=== PATIENT | male | born 1965 | race Asian ===

== ENCOUNTER 2022-05-08 15:46 | Emergency (ER) | payer OTHER ==
[2022-05-08] MEDS ORDERED: HYDROcod/ACETAM 5/325 MG TABLET PO STA (18:05)
[2022-05-08] MEDS ORDERED: IBUPROFEN 600 MG TABLET PO STA (18:05)
[2022-05-08] MEDS ORDERED: NIRMATRELVIR/RITONAVIR PREPACK PO STA (18:05)
--- NOTE | 2022-05-08 18:07 | ED Physician Documentation ---
History of Present Illness - Stated complaint Stated Complaint: C+ SOA,DIZZY,FEVER - Chief complaint Chief Complaint: General - History obtained from History obtained from: Patient, Family - Additonal information Additional information: Otherwise healthy 57-year-old gentleman has been sick for 3 or 4 days with typical COVID symptoms and subsequently tested positive. He complains of severe chills, muscle aches, cough and shortness of breath, fevers. He has tried Tylenol, Robitussin and NyQuil with modest relief. Review of Systems Constitutional: reports: Fever, Chills, Myalgias, Fatigue Nose: reports: Rhinorrhea / runny nose Throat: denies: Sore throat Respiratory: reports: Dyspnea, Cough PD PAST MEDICAL HISTORY - Present Medications Home Medications: Ambulatory Orders Medication Instructions Recorded Confirmed HYDROcod/ACETAM 5/325 [[place] 5/325] 1 - 2 tab PO Q6H PRN #15 tablet 05/08/22 Ibuprofen [Motrin] 600 mg PO Q6H PRN #30 tab 05/08/22 - Allergies Allergies/Adverse Reactions: Allergies Allergy/AdvReac Type Severity Reaction Status Date / Time No Known Drug Allergies Allergy Verified 05/08/22 15:52 PD ED PE NORMAL - Vitals Vital signs reviewed: Yes - General General: Alert and oriented X 3, No acute distress - HEENT HEENT: Pharynx benign - Cardiac Cardiac: RRR, No murmur - Respiratory Respiratory: No respiratory distress, Clear bilaterally - Abdomen Abdomen: Non tender - Back Back: No CVA TTP, No spinal TTP - Derm Derm: Normal color, Warm and dry - Neuro Neuro: Alert and oriented X 3, Normal speech Eye Opening: Spontaneous Motor: Obeys Commands Verbal: Oriented GCS Score: 15 - Psych Psych: Normal mood, Normal affect Results - Vitals Vitals: Vital Signs - 24 hr 05/08/22 15:52 Temperature 36.5 C Heart Rate 90 Respiratory 18 Rate Blood Pressure 144/70 H O2 Saturation 100 Oxygen O2 Source Room air PD Medical Decision Making - ED course ED course: 57-year-old gentleman with typical COVID symptoms. We discussed treatment options including antiviral medications and symptomatic relief and he would like to go ahead with everything. He also needs a note for work. Departure - Departure Disposition: Home, Self Care Clinical Impression: COVID-19 Condition: Good Record reviewed to determine appropriate education?: Yes Instructions: ED Viral Syndrome Prescriptions: Ibuprofen [Motrin] 600 mg PO Q6H PRN #30 tab PRN Reason: Pain HYDROcod/ACETAM 5/325 [[place] 5/325] 1 - 2 tab PO Q6H PRN #15 tablet PRN Reason: Pain Comments: You were seen today for COVID. Your symptoms are typical for COVID. We prescribed some antiviral medications which should help. You need to continue to quarantine. I sent your prescriptions electronically to [facility] in [place]. Drink plenty of fluids. Return if worse. I am prescribing a short course of narcotic pain medication for you. These are potentially dangerous and addictive medications that should be used carefully. These medications may constipate you. Take an [id number] stool softener (docusate) twice daily with plenty of water while taking these medications. If you go 24 hours without a bowel movement, take [id number] miralax, per package instructions. Do not drink or drive while taking these medications. If you received narcotic or sedating medications while in the emergency department, do not drive for 24 hours. Store this medication in a safe, secure place and out of reach of children. It is a violation of federal law to give or sell this medication to another person or to use in a manner other than prescribed. The ED will not refill narcotic prescriptions, including prescriptions lost or stolen. To dispose of unwanted medications: 1. [facility] at [address] in [place] has a medication drop box. They accept prescription medications (in pill form) Thursday through Thursday 9:00 a.m. to 5:00 p.m. 2. The [facility] [employer] accepts prescription medications (in pill form only) for disposal year round. Call for more information. 3. Contact the [facility] for the next [facility] sponsored prescription drug collection event. , [phone], or [phone]; Note that many narcotic pain relievers also contain Tylenol/acetaminophen. Please ensure that your total dose of acetaminophen from all sources does not exceed 3 g (3000 mg) per day. Forms: Activity restrictions
[2022-05-08 18:38] VITALS: BP 124/92
== END 2022-05-08 18:37 | disposition home or self-care (01) ==
LOC: ED 15:46
DX: U07.1 COVID-19 (principal)
CPT/HCPCS: 99282; 99283; A9270; J3490

== ENCOUNTER 2022-05-08 21:39 | Outpatient (CLI) | payer OTHER | END 2022-05-08 21:40 | disposition critical access hospital (66) | LOC: EMS 21:39 | DX: U07.1 COVID-19 (principal); R06.02 Shortness of breath; R56.9 Unspecified convulsions; R41.82 Altered mental status, unspecified | CPT/HCPCS: A0425; A0429 ==

== ENCOUNTER 2022-05-08 22:04 | Inpatient (IN) | payer OTHER ==
--- NOTE | 2022-05-08 22:04 | ED Physician Documentation ---
PD HPI SEIZURE - Stated complaint Stated Complaint: SZ - History obtained from History obtained from: Family, EMS - History of Present Illness Timing - onset: Enter time (21:10), Today Witnessed: Witnessed Number of seizures: Single, Lasted - seconds Description of seizure activity: Generalized, Tonic clonic Injury during seizure: None History of seizures: First seizure Similar symptoms before: Has not had sx before Recently seen: Emergency Dept - Additional information Additional information: Patient is brought in by ambulance. HPI is from EMS as well as patient's son. Patient is unable to contribute the HPI, or review of systems due to AMS. Patient was discharged a few hours ago from this emergency department. At that time, he was evaluated for a chief complaint of a few days of symptoms consistent with COVID: Chills, myalgias, cough, shortness of breath, fever. ED MD note indicates patient tested positive for COVID at home.No testing was performed at that time in the ER. He was prescribed hydrocodone and given Paxlovid kit. At approximately 9 PM tonight, patient's son heard the patient calling out from an adjacent room. Patient son then checked on patient and found the patient on the floor clutching his chest complaining of chest pain and difficulty breathing. The patient then exhibited seizure activity which patient son describes as Generalized shaking followed by full body stiffening, eyes deviating upwards, and "foaming at the mouth". Patient's son says that the shaking and the stiffening lasted for less than 10 seconds. EMS did not witness any seizure activity, but note that patient is seemingly very confused, not following commands, making nonpurposeful movements. The patient does not have any seizure history. There is no known injury such as fall or head injury. Per family, the patient has no medical history and does not take any prescription medications aside from the medications that were provided/prescribed earlier today from this emergency department. Fingerstick blood sugar by EMS result is 158. Temperature taken by EMS is 96.8. Review of Systems Unable to obtain: AMS PD PAST MEDICAL HISTORY - Past Medical History Past Medical History: No Other Past Medical History: Diagnosed with COVID earlier today - Present Medications Home Medications: Ambulatory Orders Medication Instructions Recorded Confirmed HYDROcod/ACETAM 5/325 [[place] 5/325] 1 - 2 tab PO Q6H PRN #15 tablet 05/08/22 Ibuprofen [Motrin] 600 mg PO Q6H PRN #30 tab 05/08/22 - Allergies Allergies/Adverse Reactions: Allergies Allergy/AdvReac Type Severity Reaction Status Date / Time No Known Drug Allergies Allergy Verified 05/09/22 08:21 - Living Situation Living Situation: reports: With family Living Arrangement: reports: At home PD ED PE NORMAL - Vitals Vital signs reviewed: Yes - General General: No acute distress, Well developed/nourished, Other (Patient is awake, alert. He does not follow commands. He is nonverbal, does not answer any questions (RN Phoenix is at bedside to help with translation to [employer]). Patient makes nonpurposeful movements except occasionally trying to remove leads from his chest as picking at IV) - HEENT HEENT: Atraumatic, PERRL, EOMI, Other (Despite repeated attempts to have patient open his mouth, he does not open his mouth. Thus cannot assess mucous membranes nor whether there is tongue bite. However, there is a small amount of dried blood noted on his lips.) - Neck Neck: Supple, no meningeal sign - Cardiac Cardiac: RRR, No murmur - Respiratory Respiratory: No respiratory distress, Other (Mild bibasilar muscles scattered rhonchi) - Abdomen Abdomen: Soft, Non tender (Palpation of abdomen does not elicit any reaction such as wincing nor guarding), Non distended - Derm Derm: Normal color, Warm and dry - Extremities Extremities: No edema PD ED PE EXPANDED - GCS Eye Opening: Spontaneous Motor: Localizes to Pain Verbal: None Total: 10 Results - Vitals Vitals: Vital Signs - 24 hr 05/08/22 05/08/22 05/08/22 22:01 22:33 22:37 Temperature 36.3 C L Heart Rate 92 94 86 Respiratory 21 100 H 26 H Rate Blood Pressure 135/97 H 125/107 H 125/107 H O2 Saturation 100 99 100 05/08/22 05/08/22 05/08/22 22:59 23:41 23:49 Temperature 37.1 C Heart Rate 91 78 Respiratory 24 14 Rate Blood Pressure 156/75 H 126/85 H O2 Saturation 96 99 05/09/22 05/09/22 00:00 00:50 Temperature Heart Rate 88 89 Respiratory 15 16 Rate Blood Pressure 109/89 H 109/89 H O2 Saturation 99 100 Oxygen O2 Source Room air - EKG (time done) No standard instances Rate: Rate (enter#) (92) Rhythm: NSR [place]: Normal Intervals: Normal [place], RBBB QRS: Normal Ischemia: Normal ST segments - Labs Labs: Laboratory Tests 05/08/22 05/08/22 05/08/22 22:29 22:29 22:39 WBC 8.4 RBC 4.28 L Hgb 12.7 L Hct 37.5 L MCV 87.6 MCH 29.7 MCHC 33.9 RDW 11.3 L Plt Count 175 MPV 9.3 Neut # (Auto) 6.7 H Lymph # (Auto) 1.1 L [place] # (Auto) 0.6 Eos # (Auto) 0.0 Baso # (Auto) 0.0 Absolute Nucleated RBC 0.00 Nucleated RBC % 0.0 Sodium Potassium Chloride Carbon Dioxide Anion Gap BUN Creatinine Estimated GFR (MDRD) Glucose Calcium Total Bilirubin AST ALT Alkaline Phosphatase Troponin I High Sens 7.6 Total Protein Albumin Globulin Albumin/Globulin Ratio Lipase Urine Color Urine Clarity Urine pH Ur Specific [place] Urine Protein Urine Glucose (UA) Urine Ketones Urine Occult Blood Urine Nitrite Urine Bilirubin Urine Urobilinogen Ur Leukocyte Esterase Urine RBC Urine WBC Ur Squamous Epith Cells Urine Bacteria Ur Microscopic Review Urine Culture Comments Urine Sodium Nasal Adenovirus (PCR) NOT DETECTED Nasal B. parapertussis DNA (PCR) NOT DETECTED Nasal Coronavir 229E PCR NOT DETECTED Nasal Coronavir HKU1 PCR NOT DETECTED Nasal Coronavir NL63 PCR NOT DETECTED Nasal Coronavir OC43 PCR NOT DETECTED Nasal Enterovir/Rhinovir PCR NOT DETECTED Nasal Influenza B PCR NOT DETECTED Nasal Influenza A PCR NOT DETECTED Nasal Parainfluen 1 PCR NOT DETECTED Nasal Parainfluen 2 PCR NOT DETECTED Nasal Parainfluen 3 PCR NOT DETECTED Nasal Parainfluen 4 PCR NOT DETECTED Nasal RSV (PCR) NOT DETECTED Nasal B.pertussis DNA PCR NOT DETECTED Nasal C.pneumoniae (PCR) NOT DETECTED Jon Human Metapneumo PCR NOT DETECTED Nasal M.pneumoniae (PCR) NOT DETECTED Nasal SARS-CoV-2 (PCR) DETECTED A 05/08/22 05/08/22 05/08/22 22:45 22:45 23:13 WBC RBC Hgb Hct MCV MCH MCHC RDW Plt Count MPV Neut # (Auto) Lymph # (Auto) [place] # (Auto) Eos # (Auto) Baso # (Auto) Absolute Nucleated RBC Nucleated RBC % Sodium 115 L* Potassium 3.4 L Chloride 81 L Carbon Dioxide 23 Anion Gap 11.0 BUN 6 Creatinine 0.7 Estimated GFR (MDRD) 116 Glucose 143 H Calcium 8.2 L Total Bilirubin 0.8 AST 61 H ALT 26 Alkaline Phosphatase 42 Troponin I High Sens Total Protein 6.7 Albumin 3.5 Globulin 3.2 Albumin/Globulin Ratio 1.1 Lipase 39 Urine Color YELLOW Urine Clarity CLEAR Urine pH 6.0 Ur Specific [place] 1.015 Urine Protein NEGATIVE Urine Glucose (UA) 100 H Urine Ketones NEGATIVE Urine Occult Blood LARGE H Urine Nitrite NEGATIVE Urine Bilirubin NEGATIVE Urine Urobilinogen 0.2 (NORMAL) Ur Leukocyte Esterase NEGATIVE Urine RBC 0-5 Urine WBC 0-3 Ur Squamous Epith Cells FEW Squamous Urine Bacteria Rare Ur Microscopic Review INDICATED Urine Culture Comments NOT INDICATED Urine Sodium 60.0 Nasal Adenovirus (PCR) Nasal B. parapertussis DNA (PCR) Nasal Coronavir 229E PCR Nasal Coronavir HKU1 PCR Nasal Coronavir NL63 PCR Nasal Coronavir OC43 PCR Nasal Enterovir/Rhinovir PCR Nasal Influenza B PCR Nasal Influenza A PCR Nasal Parainfluen 1 PCR Nasal Parainfluen 2 PCR Nasal Parainfluen 3 PCR Nasal Parainfluen 4 PCR Nasal RSV (PCR) Nasal B.pertussis DNA PCR Nasal C.pneumoniae (PCR) Jon Human Metapneumo PCR Nasal M.pneumoniae (PCR) Nasal SARS-CoV-2 (PCR) 05/09/22 00:49 WBC RBC Hgb Hct MCV MCH MCHC RDW Plt Count MPV Neut # (Auto) Lymph # (Auto) [place] # (Auto) Eos # (Auto) Baso # (Auto) Absolute Nucleated RBC Nucleated RBC % Sodium 118 L* Potassium 3.4 L Chloride 80 L* Carbon Dioxide 26 Anion Gap 12.0 BUN 6 Creatinine 0.7 Estimated GFR (MDRD) 116 Glucose 127 H Calcium 8.4 L Total Bilirubin AST ALT Alkaline Phosphatase Troponin I High Sens Total Protein Albumin Globulin Albumin/Globulin Ratio Lipase Urine Color Urine Clarity Urine pH Ur Specific [place] Urine Protein Urine Glucose (UA) Urine Ketones Urine Occult Blood Urine Nitrite Urine Bilirubin Urine Urobilinogen Ur Leukocyte Esterase Urine RBC Urine WBC Ur Squamous Epith Cells Urine Bacteria Ur Microscopic Review Urine Culture Comments Urine Sodium Nasal Adenovirus (PCR) Nasal B. parapertussis DNA (PCR) Nasal Coronavir 229E PCR Nasal Coronavir HKU1 PCR Nasal Coronavir NL63 PCR Nasal Coronavir OC43 PCR Nasal Enterovir/Rhinovir PCR Nasal Influenza B PCR Nasal Influenza A PCR Nasal Parainfluen 1 PCR Nasal Parainfluen 2 PCR Nasal Parainfluen 3 PCR Nasal Parainfluen 4 PCR Nasal RSV (PCR) Nasal B.pertussis DNA PCR Nasal C.pneumoniae (PCR) Jon Human Metapneumo PCR Nasal M.pneumoniae (PCR) Nasal SARS-CoV-2 (PCR) - Rads (name of study) CT head Radiology: Prelim report reviewed, Discussed with rads, EMP read indepedently, See rad report chest xray Radiology: Prelim report reviewed, EMP read indepedently, See rad report PD Medical Decision Making - ED course Complexity details: reviewed results, re-evaluated patient, considered differential Reviewed Lab Results: Tests that are ordered resulted and reviewed by me include CBC, ER abdominal panel, urinalysis, troponin, respiratory PCR panel. Additionally, chest x-ray and CT head are performed and reviewed by me. CBC has no remarkable findings; very mildly low hemoglobin of 12.7 is noted. Patient's high-sensitivity troponin is 7.6, normal range. Patient's respiratory PCR panel is confirmatory (positive) for COVID, negative for all other viruses tested on this panel.Liver function tests and lipase are without remarkable result. The most notable and relevant finding on his blood tests is a sodium of 115. Also noted is hypochloremia with chloride of 81. There are no previous tests available in [facility] for comparative purposes. This low sodium is the most likely explanation for patient's seizure at this point, as well as his ongoing confusion that is well beyond a typical postictal phase. Drug Therapy Requiring Monitoring for Toxicity: Due to patient's severe hyponatremia combined with seizure which occurred immediately prior to arrival, he is given 100 mL of hypertonic (3%) saline intravenously over 10 minutes. ED course: Patient did not exhibit any seizure activity during his ER stay, although throughout his ER stay he was confused, nonverbal, not following commands, and making mostly nonpurposeful movements except occasionally trying to remove medical equipment such as his EKG leads/monitor leads, occasionally trying to remove his IV briefly but distractible. He is given IV lorazepam doses to facilitate testing, particularly for the CT head to be adequately performed. Note that there was a substantial delay from when the CT head was performed until the time that the radiologist reading was made available to me. I did review the images of the CT head myself and I do not appreciate any mass, bleed, mass-effect, nor midline shift. After over 3-1/[address] had been completed, I heard from the radiologist that he had read the study less than an hour after he did been completed, and apparently was having some difficulty in entering his interpretation into the PACS system. At this point, the patient was admitted to [facility] after I discussed the case with the telemetry health hospitalist. I recontacted the telehealth hospitalist to update him regarding the radiologist interpretation of the CT head. The radiologist interpretation includes No acute intracranial hemorrhage or mass-effect, but radiologist's interpretation does also include "bilateral indistinct areas of periventricular and subcortical white matter hypodensity are nonspecific. The differential includes early chronic white matter small vessel ischemic changes, an Inflammatory process such as demyelinating disease, or possible vasogenic edema secondary to nonvisualized mass lesions. Recommend follow-up evaluation with contrast-enhanced MRI if clinically indicated." - Critical Care Time(min): 80 Time Includes: Direct patient care, Reassess patient, Document care, Coordinate care, Medical consult, See progress note Data interpretation: Labs, Pulse ox, CXR, See progress note Procedures included in critical care time: See progress note Procedures excluded from critical care time: See progress note Departure - Departure Disposition: 66 [facility] DC/Xfer Clinical Impression: Seizure, Hyponatremia Condition: Stable Discharge Date/Time: 05/09/22 01:36
[2022-05-08] MEDS ORDERED: LORazepam 2 MG/ML VIAL IVP STA ×2 (22:27→22:59)
[2022-05-08 22:34] LABS: BASOPHILS % (AUTO) 0.2 %; HCT - HEMATOCRIT 37.5 % (42.0-52.0); HGB - HEMOGLOBIN 12.7 g/dL (14.0-18.0); LYMPHOCYTES # (AUTO) 1.1 10^3/uL (1.5-3.5); LYMPHOCYTES % (AUTO) 12.9 %; MEAN CORPUSCULAR HEMOGLOBIN 29.7 pg (27.0-31.0); MEAN CORPUSCULAR HGB CONC 33.9 g/dL (32.0-36.0); MEAN CORPUSCULAR VOLUME 87.6 fL (80.0-94.0); MEAN PLATELET VOLUME 9.3 fL (7.4-11.4); MONOCYTES # (AUTO) 0.6 10^3/uL (0.0-1.0); MONOCYTES % (AUTO) 6.7 %; NEUTROPHILS # (AUTO) 6.7 10^3/uL (1.5-6.6); NEUTROPHILS % (AUTO) 79.7 %; PLT - PLATELET COUNT 175 10^3/uL (130-450); RED BLOOD COUNT 4.28 10^6/uL (4.70-6.10); RED CELL DISTRIBUTION WIDTH 11.3 % (12.0-15.0); WHITE BLOOD COUNT 8.4 x10^3/uL (4.8-10.8)
--- NOTE | 2022-05-08 22:49 | XRAY Report ---
PROCEDURE: Chest 1 View X-Ray INDICATIONS: chest pain TECHNIQUE: One view of the chest was acquired. COMPARISON: None. FINDINGS: Surgical changes and devices: None. Lungs and pleura: There is pulmonary vascular prominence suggestive of mild pulmonary edema. Conflue nt left retrocardiac opacities are consistent with atelectasis or consolidation. No pleural effusions or pneumothorax. Mediastinum: Mediastinal contours appear normal. Heart size is normal. Bones and chest wall: No suspicious bony lesions. Overlying soft tissues appear unremarkable. IMPRESSION: 1. Mild pulmonary edema which may be due to cardiogenic or noncardiogenic etiologies such as atypical pneumonia. 2. Confluent left retrocardiac opacities consistent with atelectasis or consolidation. Reviewed by: Phoenix Deleon MD on 05/08/2022 10:48 PM PST Approved by: Phoenix Deleon MD on 05/08/2022 10:48 PM [facility] Station ID: [id number]
[2022-05-08] MEDS ORDERED: LORazepam 2 MG/ML VIAL ONE (22:59)
[2022-05-08 23:13] LABS: BILIRUBIN,URINE NEGATIVE (NEGATIVE); GLUCOSE, URINE (UA) 100 mg/dL (NEGATIVE); KETONES,URINE (UA) NEGATIVE (NEGATIVE); LEUKOCYTE ESTERASE, URINE NEGATIVE (NEGATIVE); NITRITE,URINE NEGATIVE (NEGATIVE); OCCULT BLOOD,URINE LARGE (NEGATIVE); PROTEIN,URINE NEGATIVE (NEGATIVE); UROBILINOGEN,URINE 0.2 (NORMAL) E.U./dL (NORMAL)
[2022-05-08 23:15] LABS: CLARITY,URINE CLEAR (CLEAR)
[2022-05-08 23:23] LABS: RBC,URINE 0-5 /HPF (0-5); WBC,URINE 0-3 /HPF (0-3)
[2022-05-08 23:24] LABS: BACTERIA,URINE Rare /HPF (None Seen); SQUAMOUS EPITHELIAL CELL,UR FEW Squamous (<= Few)
[2022-05-08 23:36] LABS: CORONAVIRUS 229E-RESP PCR NOT DETECTED; CORONAVIRUS HKU1-RESP PCR NOT DETECTED; CORONAVIRUS NL63-RESP PCR NOT DETECTED; CORONAVIRUS OC43-RESP PCR NOT DETECTED
[2022-05-08 23:38] LABS: ALBUMIN 3.5 g/dL (3.2-5.5); ALBUMIN/GLOBULIN RATIO 1.1 (1.0-2.2); BILIRUBIN,TOTAL 0.8 mg/dL (0.2-1.0); CREATININE 0.7 mg/dL (0.6-1.2); TOTAL PROTEIN 6.7 g/dL (6.7-8.2)
[2022-05-08 23:38] LABS: B. PARAPERTUSSIS- RESP PCR PAN NOT DETECTED; B. PERTUSSIS- RESP PCR PANEL NOT DETECTED; C. PNEUMONIAE- RESP PCR PANEL NOT DETECTED; HUMAN METAPNEUMOVIRUS NOT DETECTED; INFLUENZA A- RESP PCR PANEL NOT DETECTED; INFLUENZA B - RESP PCR PANEL NOT DETECTED; M. PNEUMONIAE- RESP PCR PANEL NOT DETECTED; PARAINFLUENZA VIRUS 1 NOT DETECTED; PARAINFLUENZA VIRUS 2 NOT DETECTED; PARAINFLUENZA VIRUS 3 NOT DETECTED; PARAINFLUENZA VIRUS 4 NOT DETECTED; RHINOVIRUS/ENTEROVIRUS NOT DETECTED; RSV- RESP PCR PANEL NOT DETECTED; SARS-CoV-2 -RESP PCR PANEL DETECTED
[2022-05-08 23:48] LABS: CALCIUM 8.2 mg/dL (8.5-10.3); POTASSIUM 3.4 mmol/L (3.5-5.0)
[2022-05-08] MEDS ORDERED: SODIUM CHLORIDE 3% HYPERTONIC 100 ML IV STA (23:57)
[2022-05-09] MEDS ORDERED: SODIUM CHLORIDE 3% HYPERTONIC 100 ML IV STA (00:01)
[2022-05-09] MEDS ORDERED: ACETAMINOPHEN 325 MG TABLET PO PRN (00:59)
[2022-05-09] MEDS ORDERED: ONDANSETRON 4 MG/2 ML VIAL IVP PRN (00:59)
[2022-05-09 01:09] LABS: CALCIUM 8.4 mg/dL (8.5-10.3); CREATININE 0.7 mg/dL (0.6-1.2); POTASSIUM 3.4 mmol/L (3.5-5.0)
[2022-05-09] MEDS ORDERED: IPRATROPIUM/ALBUTEROL 3 ML NEB INH PRN (01:15)
[2022-05-09] MEDS ORDERED: LORazepam 2 MG/ML VIAL IVP PRN (01:16)
--- NOTE | 2022-05-09 01:24 | HISTORY & PHYSICAL EXAMINATION ---
Chief Complaint - Chief Complaint Chief Complaint: COVID. altered. History of Present Illness - Admitted From Admitted From:: Home - History Obtained From Records Reviewed: EMR History obtained from: Daughter Exam Limitations: Telemedicine. Patient is altered - History of Present Illness HPI Comment/Other: 57YM c no significant medical hx p/w altered. Patient recent start URI symptoms. He took Nyquil, acetminophen, and drank fluids. At home, patient tested positive for COVID. Around 3pm patient was complaining of SOB and chest discomfort. He came into the ED and was found stable on room air and discharge on Paxlovid. Patient did take one dose of it tonight. Around 2100, son heard patient fall and found patient having generalized tonic clonic seizure. Patient was altered. He was brought into the ED where CT head prelim negative however Na 115. Daughter reports patient does not take any medications. He has never had seizure before. No recent trauma. History - Past Medical History MRSA Hx?: No Other Past Medical History: No medical hx per family. - Family & Social History Living arrangement: At home Living Situation: With family - Substance History Use: Uses substance without health or social issues: NONE - POLST Patient has POLST: No Meds/Allgy - Home Medications Home Medications: Ambulatory Orders Medication Instructions Recorded Confirmed HYDROcod/ACETAM 5/325 [[place] 5/325] 1 - 2 tab PO Q6H PRN #15 tablet 05/08/22 Ibuprofen [Motrin] 600 mg PO Q6H PRN #30 tab 05/08/22 - Allergies Allergies/Adverse Reactions: Allergies Allergy/AdvReac Type Severity Reaction Status Date / Time No Known Drug Allergies Allergy Verified 05/08/22 22:13 Review of Systems - Other Findings Other Findings: altered. ROS limited. Exam - Vital Signs Reviewed Vital Signs: Yes Vital Signs: Vital Signs x48h Temp Pulse Resp BP Pulse Ox 05/09/22 00:50 89 16 109/89 H 100 05/09/22 00:00 88 15 109/89 H 99 05/08/22 23:49 37.1 C 05/08/22 23:41 78 14 126/85 H 99 05/08/22 22:59 91 24 156/75 H 96 05/08/22 22:37 86 26 H 125/107 H 100 05/08/22 22:33 94 100 H 125/107 H 99 05/08/22 22:01 36.3 C L 92 21 135/97 H 100 - Physical Exam General Appearance: positive: No acute distress, Lethargic Eyes Bilateral: positive: Normal inspection ENT: positive: ENT inspection nml Neck: positive: Nml inspection Respiratory: positive: No respiratory distress, Breath sounds nml (diminshed per RN report) Cardiovascular: positive: Tachycardia Abdomen: positive: Non-tender, No distention. negative: Tenderness Skin: positive: Color nml Extremities: positive: No pedal edema Neurologic/Psychiatric: negative: Oriented x3 Conclusion/Plan - Problem List (1) Seizure Conclusion/Plan: generalized tonic clonic seizure 2/2 hyponatremia 115. Patient received ativan in ED and seizure activities stopped. will order ativan prn at bedside. continue neuro check (2) Hyponatremia Conclusion/Plan: given COVID infection & report of oral hydration at home, likely SIADH. fluid restrict. monitor q 4 Na checks. tele monitor. neuro checks. (3) Encephalopathy Conclusion/Plan: altered state 2/2 COVID infection and hyponatremia and Seizure. manage covid and hyponatremia as noted above. fall precaution. seizure precaution. aspiration precaution. (4) COVID-19 Conclusion/Plan: COVID positive. not hypoxic. r/o PE given report of SOB and chest pain. opting to continue c Paxlovid. hold steroids as no SOB. breathing treatment prn. tele monitor. - Lab Results Fish Bones: 05/08/22 22:29 05/09/22 00:49 Core Measures - Anticipated LOS I expect patient to be DC'd or transferred within 96 hours.: Yes - DVT/VTE - Prophylaxis VTE/DVT Device ordered at admit?: Yes VTE/DVT Prophylaxis med ordered at admit?: Yes - Stroke - Rehab Assessment Rehab services assessment to be ordered?: No - AMI - Statin at Admit Aspirin Prescribed on Admit: No Telemedicine Consult Details - Provider Location & Consult Time Telemedicine consultation conducted via videoconferencing?: Yes List names and roles of persons who participated in consult:: RN Telemedicine provider location:: [facility] Time Telemedicine consult began:: 02:05 Time Telemedicine consult completed:: 02:05
[2022-05-09] MEDS: HEPARIN 5,000 UNIT/ML VIAL SUBQ SCH ×3 (02:54→20:43)
[2022-05-09] MEDS: SODIUM CHLORIDE FLUSH 0.9% 10 ML SYRINGE IVP SCH ×3 (02:55→17:11)
[2022-05-09] MEDS ORDERED: POTASSIUM CHLOR 10 MEQ/100 ML 10 MEQ/100 ML BAG IV SCH (03:00)
--- NOTE | 2022-05-09 03:23 | CT Report ---
PROCEDURE: HEAD WO INDICATIONS: new-onset seizure TECHNIQUE: Noncontrast 4.5 mm thick angled axial sections acquired from the foramen magnum to the vertex. For r adiation dose reduction, the following was used: automated exposure control, adjustment of mA and/or kV according to patient size. COMPARISON: None. FINDINGS: Image quality: There is motion artifact limiting evaluation. CSF spaces: Basal cisterns are patent. No extra-axial fluid collections. Ventricles are normal in size and shape. Brain: No intracranial hemorrhage or midline shift. There are a few indistinct areas of cortical and periventricular hypodensity including curvilinear subcortical regions in the left parietal lobes. Gr ay-white matter interface appears grossly preserved. Skull and face: Calvarium and visualized facial bones are intact, without suspicious lesions. Sinuses: Visualized sinuses and mastoids are clear. IMPRESSION: 1. No acute intracranial hemorrhage or mass effect. 2. Bilateral indistinct areas of periventricular and subcortical white matter hypodensity are nonspec ific. The differential includes early chronic white matter small vessel ischemic changes, an inflamma tory process such as demyelinating disease, or possible vasogenic edema secondary to nonvisualized ma ss lesions. Recommend follow-up evaluation with contrast enhanced MRI if clinically indicated. Reviewed by: Phoenix Deleon MD on 05/08/2022 11:58 PM PST Approved by: Phoenix Deleon MD on 05/08/2022 11:58 PM PST Station ID: [id number]
[2022-05-09] MEDS: LORazepam 2 MG/ML VIAL IVP PRN ×9 (03:33→21:19)
[2022-05-09] MEDS ORDERED: HALOPERIDOL 5 MG/ML VIAL IVP PRN (04:06)
[2022-05-09] MEDS ORDERED: iohexoL-300 100 ML VIAL ONE (04:09)
[2022-05-09 05:13] LABS: HCT - HEMATOCRIT 37.6 % (42.0-52.0); MEAN CORPUSCULAR HGB CONC 34.6 g/dL (32.0-36.0); MEAN CORPUSCULAR VOLUME 86.6 fL (80.0-94.0); MEAN PLATELET VOLUME 9.1 fL (7.4-11.4); RED BLOOD COUNT 4.34 10^6/uL (4.70-6.10); RED CELL DISTRIBUTION WIDTH 11.1 % (12.0-15.0); WHITE BLOOD COUNT 7.8 x10^3/uL (4.8-10.8)
[2022-05-09 05:26] LABS: CALCIUM 8.2 mg/dL (8.5-10.3); CREATININE 0.5 mg/dL (0.6-1.2); POTASSIUM 3.3 mmol/L (3.5-5.0)
[2022-05-09 05:44] LABS: THYROID STIMULATING HORMONE 0.83 uIU/mL (0.34-5.60)
[2022-05-09 06:59] LABS: PROCALCITONIN 0.05 ng/mL (<0.5)
[2022-05-09 08:32] LABS: CALCIUM 8.3 mg/dL (8.5-10.3); CREATININE 0.7 mg/dL (0.6-1.2); POTASSIUM 2.9 mmol/L (3.5-5.0)
[2022-05-09 09:49] LABS: CALCIUM 8.6 mg/dL (8.5-10.3); CREATININE 0.7 mg/dL (0.6-1.2); POTASSIUM 3.6 mmol/L (3.5-5.0)
[2022-05-09] MEDS ORDERED: LORazepam 2 MG/ML VIAL IVP STA ×2 (11:11→18:50)
--- NOTE | 2022-05-09 11:15 | PHARMACY PROGRESS NOTE ---
- Best Possible Medication History Admit Date and Time: 05/09/22 0054 Processed by: Pharmacy Medication History completed: Yes Patient Interview: Pt unable to participate Secondary Source(s): Pharmacy records, Insurance records As the person ultimately responsible for medication therapy, providers are able to order a medication from an existing home medication list in [facility] via the "Reconcile Routine" prior to Confirmation of that medication by marketing support manager. Such practice is discouraged except when the physician, in their clinical judgment, deems that a medical need exists for a medication without regard to previous use.
[2022-05-09] MEDS ORDERED: NIRMATRELVIR/RITONAVIR PREPACK PO SCH (12:00)
[2022-05-09] MEDS: SODIUM CHLORIDE FLUSH 0.9% 10 ML SYRINGE IVP PRN ×2 (13:32→15:15)
[2022-05-09] MEDS: NIRMATRELVIR/RITONAVIR PREPACK PO SCH ×2 (15:02→20:13)
[2022-05-09] MEDS ORDERED: HALOPERIDOL 5 MG/ML VIAL IVP ONE (18:33)
[2022-05-09] MEDS ORDERED: iohexoL-300 100 ML VIAL IVP ONE (19:48)
--- NOTE | 2022-05-09 20:05 | CT Report ---
PROCEDURE: ANGIO CHEST W/WO INDICATIONS: PE CONTRAST: 80 omni 300 TECHNIQUE: After the administration of intravenous contrast, 2 mm axial images were acquired from the pulmonary apices to the posterior costophrenic angles during the arterial phase. In addition, 1 mm lung kernel and 5 mm soft tissue kernel reconstructions were performed. 3-dimensional coronal oblique maximum int ensity projection (MIP) reformats, 8 mm axial MIP, and 5 mm coronal and sagittal MPR reformats were t hen performed through the thorax. For radiation dose reduction, the following was used: automated exp osure control, adjustment of mA and/or kV according to patient size. COMPARISON: FINDINGS: Image quality: Excellent. Pulmonary arteries: Pulmonary arteries are normal in size, and demonstrate no intraluminal filling d efects to suggest central pulmonary embolism. Lungs and pleura: Small left and trace right pleural effusions with overlying atelectasis. Diffuse [place] pulmonary parenchymal attenuation consistent with mixed interstitial and alveolar edema. No consol idation. Airways clear. Mediastinum: Heart size is normal, without pericardial effusion. No mediastinal or hilar adenopathy . Thoracic aorta is normal in caliber and enhancement. Esophagus is normal in caliber, without hiat al hernia. Bones and chest wall: No suspicious bony lesions. Ribs and thoracic spine appear intact throughout. No axillary or supraclavicular adenopathy. The thyroid is normal in size and there are no incident al findings. Abdomen: Visualized upper abdominal solid organs appear normal in the early arterial phase of enhanc ement. IMPRESSION: No pulmonary edema. Tiny pleural effusions and diffuse hazy airspace opacity suggestive of edema or perhaps atypical infe ction. Reviewed by: Kiran Lipscomb MD on 05/09/2022 8:03 PM PST Approved by: Kiran Lipscomb MD on 05/09/2022 8:03 PM PST Station ID: [id number]
[2022-05-10] MEDS: LORazepam 2 MG/ML VIAL IVP PRN (00:01)
[2022-05-10] MEDS: ACETAMINOPHEN 1,000 MG/100 ML 1,000 MG/100 ML BAG IV PRN ×2 (00:29→13:12)
[2022-05-10] MEDS: SODIUM CHLORIDE FLUSH 0.9% 10 ML SYRINGE IVP SCH ×3 (00:32→18:03)
[2022-05-10 08:58] LABS: BASOPHILS % (AUTO) 0.2 %; HCT - HEMATOCRIT 46.7 % (42.0-52.0); HGB - HEMOGLOBIN 15.9 g/dL (14.0-18.0); LYMPHOCYTES # (AUTO) 1.3 10^3/uL (1.5-3.5); MEAN CORPUSCULAR HEMOGLOBIN 29.8 pg (27.0-31.0); MEAN CORPUSCULAR VOLUME 87.6 fL (80.0-94.0); MEAN PLATELET VOLUME 9.1 fL (7.4-11.4); MONOCYTES # (AUTO) 0.5 10^3/uL (0.0-1.0); MONOCYTES % (AUTO) 6.2 %; NEUTROPHILS # (AUTO) 6.6 10^3/uL (1.5-6.6); NEUTROPHILS % (AUTO) 78.5 %; PLT - PLATELET COUNT 188 10^3/uL (130-450); RED BLOOD COUNT 5.33 10^6/uL (4.70-6.10); RED CELL DISTRIBUTION WIDTH 11.9 % (12.0-15.0); WHITE BLOOD COUNT 8.4 x10^3/uL (4.8-10.8)
[2022-05-10] MEDS ORDERED: SODIUM CHLORIDE 0.9% 1,000 ML IV SCH (09:00)
[2022-05-10 09:06] LABS: CALCIUM 8.6 mg/dL (8.5-10.3); CREATININE 0.8 mg/dL (0.6-1.2); POTASSIUM 4.1 mmol/L (3.5-5.0)
[2022-05-10] MEDS: NIRMATRELVIR/RITONAVIR PREPACK PO SCH ×2 (09:30→21:40)
[2022-05-10] MEDS: HEPARIN 5,000 UNIT/ML VIAL SUBQ SCH ×2 (09:52→21:35)
--- NOTE | 2022-05-10 13:41 | PROVIDER PROGRESS NOTE ---
Progress Note May 10, 2022 1:38 PM Chart reviewed. Patient was admitted as a seizure with hyponatremia. He has been in the emergency room as a visitor for most of the last week. His father is in the ER as a border getting CBI. The patient became ill with URI symptomatology as did several members of the family. He himself came into the emergency room and was diagnosed with COVID and sent home with Paxil bid. Hours later is when he had the seizure. His describes him as being vigilant about his fluid status. He was told to make sure he drink plenty of water so in the hours that he was home he did drink 3 L of water. Since being here, he is either too agitated to take p.o., or too somnolent to take p.o. He is required four-point restraints, soft, of all extremities. At times he will even use his feet to bend at the knee, and bring the foot up to his groin to pull out his Barb[place]. But he is not able to have any meaningful response when sedation is lightened. He has been not on verbal for the most part. This morning he had echolalia with the nurse. I did ask him if he was in any pain and he said no. I then asked if he was okay and he told me "I am okay". But these were very brief interactions where there is no further response from them. Active Medications Acetaminophen (Acetaminophen 325 Mg Tablet) 650 mg PO Q4HR PRN PRN Reason: Pain 1 to 4, or Fever Albuterol/Ipratropium (Ipratropium/Albuterol 3 Ml Neb) 3 ml INH Q4HR PRN PRN Reason: Wheezing Heparin Sodium (Porcine) (Heparin 5,000 Unit/Ml Vial) 5,000 unit SUBQ BID [facility] Last Admin: 05/10/22 09:52 Dose: 5,000 unit Acetaminophen (Acetaminophen) 1,000 mg in 100 mls @ 400 mls/hr IV Q6HR PRN PRN Reason: FEVER > 100.5 F Last Infusion: 05/10/22 13:30 Dose: Infused Sodium Chloride (Normal Saline 0.9%) 1,000 mls @ 125 mls/hr IV .Q8H [facility] Last Admin: 05/10/22 09:00 Dose: 125 mls/hr Latanoprost (Latanoprost 0.005% Ophth Drops) 1 drops EACHEYE QPM [facility] Lorazepam (Lorazepam 2 Mg/Ml Vial) 1 mg IVP Q5MIN PRN PRN Reason: Seizure Last Admin: 05/09/22 01:52 Dose: 1 mg Lorazepam (Lorazepam 2 Mg/Ml Vial) 1 mg IVP Q2H PRN PRN Reason: Anxiety Last Admin: 05/10/22 00:01 Dose: 1 mg Ondansetron HCl (Ondansetron 4 Mg/2 Ml Vial) 4 mg IVP Q6HR PRN PRN Reason: Nausea / Vomiting Nirmatrelvir/ (Ritonavir Prepack) 1 each PO BID [facility] Last Admin: 05/10/22 09:30 Dose: Not Given Sodium Chloride (Sodium Chloride Flush 0.9% 10 Ml Syringe) 10 ml IVP PRN PRN PRN Reason: NEEDED PER PROVIDER ORDERS Last Admin: 05/09/22 15:15 Dose: 10 ml Sodium Chloride (Sodium Chloride Flush 0.9% 10 Ml Syringe) 10 ml IVP 0100,0900,1700 [facility] Last Admin: 05/10/22 11:48 Dose: Not Given Timolol Maleate (Timolol 0.5% Ophth Drops) 1 drops EACHEYE BID [facility] Latanoprost/Pf [Latanoprost 0.005% Eye Drop] 1 drops EACHEYE QPM 05/09/22 Timolol 0.5% Ophth Drops [Timoptic 0.5% Ophth Drops] 1 drops EACHEYE BID 05/09/22 Temperature this afternoon to 38 degrees. Heart rate 93. Blood pressure 150/84. Respirations 20. 97% on room air. 5 feet 5 inches tall, 55.5 kg Slender Faro[place] male, looks younger than stated age, halitosis, dry oral mucosa, initially unresponsive to voice or to touch, and it took by shaking his shoulders a couple of times for him to even respond to any my questions. There is a language barrier I am told from nursing. Shotty neck adenopathy Coarse upper airway sounds but no respiratory distress Regular rate and rhythm that is borderline tachycardic Abdomen is soft, nontender, normal bowel sounds Extremities are warm, no clubbing cyanosis or edema From a neurological perspective responsive to noxious stimuli, moving all extremities spontaneously, and when not in restraints we will try to pull off his facemask, pull out the IVs, or pull out the Barb[place] Sodium in the emergency room was 115. He received 100 mL of hypertonic saline. A second set of hypertonic saline 100 mils. By yesterday morning he was 120. Saline and hypertonic saline held. This morning, on his own, he is drifted up to 126. Potassium 4.1, anion gap 15, BUN 19, creatinine 0.8, glucose 81 Troponin number one 7.6. Troponin #2 is 32. Troponin #3 is 40. White cell count 8.4, hemoglobin 15.9, hematocrit 46.7. Admitting telemedicine doctor had ordered a CT pulmonary angiogram and it was done yesterday evening because of hypoxia and pulmonary arteries were without emboli. Small trace pleural effusions. Diffuse hazy pulmonary parenchymal attenuation consistent with mixed interstitial alveolar edema. No pneumonia, no emboli Assessment/Plan (1) Seizure due to hyponatremia Conclusion/Plan: generalized tonic clonic seizure 2/2 hyponatremia 115. Patient received ativan in ED and seizure activities stopped. CT head neg for lesions. Since his seizure he has not really woken up. He has been agitated, delirious, requiring restraints because he pulled out IVs, pulled off oxygen, and not able to respond to voice commands. Hyponatremia is improving. I would have expected him to work up by now. We will continue to support, use as needed Ativan if he seizes again. (2) Hyponatremia Conclusion/Plan: given COVID infection & report of oral hydration at home, likely SIADH. fluid restrict. He has been receiving intermittent hypertonic saline, and that was stopped after to 100 mill bags yesterday. Between yesterday morning and now he is not had any IV fluids and his sodium has gone up to 126 on its own. Will resume IV fluids if only in the face of dehydrated oral mucosa and no p.o. intake. Continue to watch sodium carefully. (3) Encephalopathy Conclusion/Plan: altered state 2/2 COVID infection and hyponatremia and Seizure. manage covid and hyponatremia as noted above. fall precaution. seizure precaution. aspiration precaution. Transfer to [facility]. He has been in the ICU. With sodium now normal, I think he is safe to go to [facility] (4) COVID-19 Conclusion/Plan: COVID positive. not hypoxic. r/o PE given report of SOB and chest pain. opting to continue c Paxlovid But he has not been able to take p.o. so no meds for Covid given. hold steroids as no SOB. breathing treatment prn. Today he has spiked a fever. Yesterday no pna on CT. I will treat w tylenol but reconsider if fever recurs. I have also rechecked urine and ordered blood cultures.
[2022-05-10 14:17] LABS: GLUCOSE, URINE (UA) NEGATIVE (NEGATIVE); KETONES,URINE (UA) >=80 mg/dL (NEGATIVE); LEUKOCYTE ESTERASE, URINE NEGATIVE (NEGATIVE); NITRITE,URINE NEGATIVE (NEGATIVE); OCCULT BLOOD,URINE LARGE (NEGATIVE); PH,URINE 5.5 PH (5.0-7.5); PROTEIN,URINE 100 mg/dL (NEGATIVE); UROBILINOGEN,URINE 0.2 (NORMAL) E.U./dL (NORMAL)
[2022-05-10 14:21] LABS: BILIRUBIN,URINE NEGATIVE (NEGATIVE); CLARITY,URINE SL. CLOUDY (CLEAR); ICTOTEST,URINE NEGATIVE
[2022-05-10 14:36] LABS: BACTERIA,URINE None Seen /HPF (None Seen); CASTS, URINE 6-10 Granular Casts /LPF; SQUAMOUS EPITHELIAL CELL,UR NONE SEEN (<= Few)
[2022-05-10] MEDS ORDERED: DEXTROSE 50% ABBOJECT 25 GM/50 ML SYRINGE IVP ONE (17:45)
[2022-05-10] MEDS: D5NS W/20 MEQ KCL 1,000 ML IV SCH (18:48)
[2022-05-10] MEDS: TIMOLOL 0.5% OPHTH DROPS EACHEYE SCH (21:37)
[2022-05-10] MEDS: LATANOPROST 0.005% OPHTH DROPS EACHEYE SCH (21:39)
[2022-05-11] MEDS: SODIUM CHLORIDE FLUSH 0.9% 10 ML SYRINGE IVP SCH ×3 (01:01→17:31)
[2022-05-11 05:37] LABS: BASOPHILS % (AUTO) 0.1 %; EOSINOPHILS % (AUTO) 0.1 %; HCT - HEMATOCRIT 41.5 % (42.0-52.0); HGB - HEMOGLOBIN 14.2 g/dL (14.0-18.0); LYMPHOCYTES # (AUTO) 1.1 10^3/uL (1.5-3.5); LYMPHOCYTES % (AUTO) 11.3 %; MEAN CORPUSCULAR HGB CONC 34.2 g/dL (32.0-36.0); MEAN CORPUSCULAR VOLUME 87.7 fL (80.0-94.0); MEAN PLATELET VOLUME 9.4 fL (7.4-11.4); MONOCYTES # (AUTO) 0.6 10^3/uL (0.0-1.0); NEUTROPHILS # (AUTO) 7.8 10^3/uL (1.5-6.6); NEUTROPHILS % (AUTO) 82.2 %; PLT - PLATELET COUNT 199 10^3/uL (130-450); RED BLOOD COUNT 4.73 10^6/uL (4.70-6.10); RED CELL DISTRIBUTION WIDTH 11.9 % (12.0-15.0); WHITE BLOOD COUNT 9.5 x10^3/uL (4.8-10.8)
[2022-05-11 05:43] LABS: CALCIUM 8.2 mg/dL (8.5-10.3); CREATININE 0.9 mg/dL (0.6-1.2); POTASSIUM 4.3 mmol/L (3.5-5.0)
[2022-05-11] MEDS: D5NS W/20 MEQ KCL 1,000 ML IV SCH ×2 (07:06→19:13)
--- NOTE | 2022-05-11 08:06 | PROVIDER PROGRESS NOTE ---
Progress Note May 11, 2022 8:02 AM Starting yesterday afternoon, he is becoming more more alert. By 8 PM last night, family came to visit him and I was able to see him sit up, greet them normally. Speak in full sentences to them. He is responding to her questions appropriately. Does not remember anything of what happened to him and is very surprised that he is here. Active Medications Acetaminophen (Acetaminophen 325 Mg Tablet) 650 mg PO Q4HR PRN PRN Reason: Pain 1 to 4, or Fever Albuterol/Ipratropium (Ipratropium/Albuterol 3 Ml Neb) 3 ml INH Q4HR PRN PRN Reason: Wheezing Heparin Sodium (Porcine) (Heparin 5,000 Unit/Ml Vial) 5,000 unit SUBQ BID [facility] Last Admin: 05/10/22 21:35 Dose: 5,000 unit Acetaminophen (Acetaminophen) 1,000 mg in 100 mls @ 400 mls/hr IV Q6HR PRN PRN Reason: FEVER > 100.5 F Last Infusion: 05/10/22 13:30 Dose: Infused Potassium Chloride/Dextrose/Sod Cl (D5ns W/20 Meq Kcl) 1,000 mls @ 83.333 mls/hr IV .Q12H [facility] Last Admin: 05/11/22 07:06 Dose: 83.333 mls/hr Latanoprost (Latanoprost 0.005% Ophth Drops) 1 drops EACHEYE QPM [facility] Last Admin: 05/10/22 21:39 Dose: 1 drops Lorazepam (Lorazepam 2 Mg/Ml Vial) 1 mg IVP Q5MIN PRN PRN Reason: Seizure Last Admin: 05/09/22 01:52 Dose: 1 mg Lorazepam (Lorazepam 2 Mg/Ml Vial) 1 mg IVP Q2H PRN PRN Reason: Anxiety Last Admin: 05/10/22 00:01 Dose: 1 mg Ondansetron HCl (Ondansetron 4 Mg/2 Ml Vial) 4 mg IVP Q6HR PRN PRN Reason: Nausea / Vomiting Nirmatrelvir/ (Ritonavir Prepack) 1 each PO BID [facility] Last Admin: 05/10/22 21:40 Dose: Not Given Sodium Chloride (Sodium Chloride Flush 0.9% 10 Ml Syringe) 10 ml IVP PRN PRN PRN Reason: NEEDED PER PROVIDER ORDERS Last Admin: 05/09/22 15:15 Dose: 10 ml Sodium Chloride (Sodium Chloride Flush 0.9% 10 Ml Syringe) 10 ml IVP 0100,0900,1700 [facility] Last Admin: 05/11/22 01:01 Dose: Not Given Timolol Maleate (Timolol 0.5% Ophth Drops) 1 drops EACHEYE BID [facility] Last Admin: 05/10/22 21:37 Dose: 1 drops Latanoprost/Pf [Latanoprost 0.005% Eye Drop] 1 drops EACHEYE QPM 05/09/22 Timolol 0.5% Ophth Drops [Timoptic 0.5% Ophth Drops] 1 drops EACHEYE BID 3 Temperature is 36.4. Heart rate 78. Blood pressure 124/73. Respirations 16. 98% on room air. He is alert, oriented x 3. Dry mucous membranes. Exhausted. NOt eating much. It's an effort to answer me. He can understand my simple quesitons he says and does respond appropriately in spite of language barrier. Shotty neck nodes but supple Dry cough occasionally but no sob, montesinos. Getting up to Bathroom but unsteady on his feet. REminded not to get up without assist. Clear lungs, no tachypnea RRR Abd soft, nontender, normal BX Ext without edema. Sodium 134, potassium 4.3, chloride 98, BUN 19, creatinine 0.9. Random glucose 130. At 6 AM a [id number] glucose is 155. Assessment/Plan (1) Seizure due to hyponatremia Conclusion/Plan: generalized tonic clonic seizure 2/2 hyponatremia 115. Patient received ativan in ED and seizure activities stopped. CT head neg for lesions. After his seizure he did not wake up. He had been agitated, delirious, requiring restraints because he pulled out IVs, pulled off oxygen, and not able to respond to voice commands for 2 days. Hyponatremia has resolved. I was concerned about a postictal state that was taking too long to recover from, and I was also worried because his glucose was starting to drop without any p.o. intake. I started him on D5 normal saline last night. Plan: allow him to eat. Discontinue IV fluids and continue to watch rise of his Na (2) Hyponatremia resolved Conclusion/Plan: given COVID infection & report of oral hydration at home, likely SIADH. fluid restrict. He has been receiving intermittent hypertonic saline, and that was stopped after two 100 mill bags 05/09. Between 05/09 morning and 05/10, he is not had any IV fluids and his sodium had gone up to 126 on its own. By last night he was 127. He is 134 this am. Stop IVF and feed him. (3) Encephalopathy resolved. Conclusion/Plan: altered state 2/2 COVID infection and hyponatremia and Seizure. He is weak and unsteady on his feet. I will have him sit up in bed, walk in room with assistance. Eat. If he can be independent safely, he can go home. (4) COVID-19 Conclusion/Plan: COVID positive. not hypoxic. r/o PE given report of SOB and chest pain. opting to continue c Paxlovid But he has not been able to take p.o. so no meds for Covid given. hold steroids as no SOB. breathing treatment prn. He spiked a fever at 1:00 in the afternoon on the . I did blood cultures, but has not been able to give urine for a culture. Now that he is more awake we will see if he can get 1 done this morning. Treatment at that time consisted of Tylenol for the fever. No antibiotics done since his CT of the chest did not show pneumonia. We will continue to monitor for signs and symptoms of infection and start antibiotics if appropriate. Resume paxlovid.
[2022-05-11] MEDS: NIRMATRELVIR/RITONAVIR PREPACK PO SCH ×2 (08:34→21:50)
[2022-05-11] MEDS: TIMOLOL 0.5% OPHTH DROPS EACHEYE SCH ×2 (08:34→21:47)
[2022-05-11] MEDS: HEPARIN 5,000 UNIT/ML VIAL SUBQ SCH ×2 (08:34→21:47)
[2022-05-11] MEDS: LATANOPROST 0.005% OPHTH DROPS EACHEYE SCH (21:54)
[2022-05-12] MEDS: SODIUM CHLORIDE FLUSH 0.9% 10 ML SYRINGE IVP SCH ×2 (01:00→10:14)
[2022-05-12] MEDS ORDERED: HYDROmorphone 0.5 MG/0.5 ML SYRINGE ONE (05:32)
[2022-05-12 06:13] LABS: BASOPHILS % (AUTO) 0.2 %; EOSINOPHILS % (AUTO) 0.3 %; HCT - HEMATOCRIT 39.9 % (42.0-52.0); HGB - HEMOGLOBIN 13.5 g/dL (14.0-18.0); LYMPHOCYTES # (AUTO) 1.3 10^3/uL (1.5-3.5); LYMPHOCYTES % (AUTO) 13.3 %; MEAN CORPUSCULAR HEMOGLOBIN 29.9 pg (27.0-31.0); MEAN CORPUSCULAR HGB CONC 33.8 g/dL (32.0-36.0); MEAN CORPUSCULAR VOLUME 88.5 fL (80.0-94.0); MEAN PLATELET VOLUME 9.3 fL (7.4-11.4); MONOCYTES # (AUTO) 0.4 10^3/uL (0.0-1.0); MONOCYTES % (AUTO) 4.4 %; NEUTROPHILS # (AUTO) 7.8 10^3/uL (1.5-6.6); NEUTROPHILS % (AUTO) 81.5 %; PLT - PLATELET COUNT 219 10^3/uL (130-450); RED BLOOD COUNT 4.51 10^6/uL (4.70-6.10); RED CELL DISTRIBUTION WIDTH 11.7 % (12.0-15.0); WHITE BLOOD COUNT 9.6 x10^3/uL (4.8-10.8)
[2022-05-12 06:24] LABS: CREATININE 0.7 mg/dL (0.6-1.2)
[2022-05-12] MEDS: D5NS W/20 MEQ KCL 1,000 ML IV SCH (07:57)
[2022-05-12] MEDS: TIMOLOL 0.5% OPHTH DROPS EACHEYE SCH (08:24)
[2022-05-12] MEDS: HEPARIN 5,000 UNIT/ML VIAL SUBQ SCH (08:24)
[2022-05-12 08:36] VITALS: BP 129/83
--- NOTE | 2022-05-12 08:51 | Discharge Plan ---
Discharge Plan Problem Reviewed?: Yes Disposition: Home, Self Care Condition: Stable Diet: Regular Activity Restrictions: Activity as Tolerated (no work for a week) Shower Restrictions: No Driving Restrictions: Yes (No driving until your regular doctor clears you) Instruction Topics: Hyponatremia Dc Health Concerns: You had just been diagnosed with COVID and had gone home to take the viral medicine. COVID made you tired, fatigued, and not eating or drinking well. But you were trying to make sure you drink plenty of water. We think that the water that you drink was too much and it diluted the salt in your body. It dropped the salt level in your body so low that you had a seizure. Once we started bringing up your salt levels, and hydrating you with salt water, you open your eyes, were back to being normal again. Today you are sitting up, eating breakfast, having normal oxygen and normal vital signs. You are safe to go home Plan of Treatment: Please see your regular doctor in the next [address] Teresa Osullivan. Resume the Paxil a bed that was given to you from the emergency room. You do not have to go to work for a week. You will be tired, easily fatigued if you try and work. So I am saying that you do not have to go back to work for a week. Until Dr. Osullivan sees you, you cannot drive Have Dr. Osullivan order another x-ray of your head. We would recommend an MRI of your brain. We did a brain scan to make sure there is nothing wrong with your brain, but sometimes you need a second study to get a better picture Assessment: Patient is alert, oriented. States he understands me and my instructions and spite of a language barrier. I am having one of our staff reiterate instructions and his dialect. No Smoking: If you smoke, Please STOP! Call for help. Follow-up with: Teresa Osullivan MD [Physician No Access] -
--- NOTE | 2022-05-12 08:59 | DISCHARGE SUMMARY ---
"Discharge Summary Admit Date: 05/09/22 Discharge Date: 05/12/22 Discharging Provider: Cassandra Oliveros MD Primary Care Provider: Teresa Osullivan MD Code Status: Attempt Resuscitation Condition at Discharge: Stable Discharge Disposition: 01 Home, Self Care - DIAGNOSES Discharge Diagnoses with Status of Each Condition: 1. Seizure due to hyponatremia 2. Hyponatremia 3. Metabolic encephalopathy 4. COVID infection 5. Abnormal CT of head needing follow-up MRI - HPI History of Present Illness: 57YM c no significant medical hx p/w altered. Patient recent start URI symptoms. He took Nyquil, acetminophen, and drank fluids. At home, patient tested positive for COVID. Around 3pm patient was complaining of SOB and chest discomfort. He came into the ED and was found stable on room air and discharge on Paxlovid. Patient did take one dose of it tonight. Around 2100, son heard patient fall and found patient having generalized tonic clonic seizure. Patient was altered. He was brought into the ED where CT head prelim negative however Na 115. Daughter reports patient does not take any medications. He has never had seizure before. No recent trauma. History - Past Medical History MRSA Hx?: No Other Past Medical History: No medical hx per family. - CONSULTS | PROCEDURES Procedures: 1. Chest x-ray with mild pulmonary edema, confluent left retrocardiac opacities consistent with atelectasis or pneumonia 2. Chest thorax CT angiogram with small left and trace right pleural effusions overlying atelectasis. Diffuse hazy pulmonary parenchyma consistent with mixed interstitial and alveolar edema no consolidation. No pulmonary embolism. 3. Head CT without acute intracranial hemorrhage or mass-effect. Bilateral indistinct areas of periventricular and subcortical white matter hypodensities that are nonspecific. Differential includes early chronic white matter small vessel ischemic changes, and inflammatory process such as a demyelinating disease, or vasogenic edema secondary to nonvisualized mass edema. An MRI in the outpatient setting for follow-up could be indicated if patient remains symptomatic - HOSPITAL COURSE Hospital Course: The patient was placed in the intensive care unit because of the hyponatremia and fears of seizures. He received hypertonic saline, and then was stopped on IV fluids. This is when he reaches sodium of 120. Over the next day he had no IV fluids, and the next morning sodium was 126. Was felt to be dehydrated so we resumed small amounts of normal saline. He started waking up the evening of the , and by May 11 was baseline mental status. But he had no recollec tion of the events that led to his illness. He was alert, oriented, speech normal. He had no symptoms of COVID even though he was COVID-positive. He did not have cough, congestion, sore throat. He did have temperature to 38.5 degrees on May 10 community support specialist hours. And then 1 at 1 PM. And no fever since then. Because his chest x-ray is clear, and he had no signs and symptoms, I opted not to give him antibiotics. Blood cultures were done and were without growth for 2 days. In reviewing the CT of the head, he will need follow-up MRI for possible demyelinating problem. At the time of discharge the patient was alert, oriented. Ambulating in the room. Needing no assist. Eating 50 to 75% of the hospital proved. He states that he had an appetite and he was hungry but he admitted that he just did not like the food here very much and wished to have his own food from home. Tempera ture was 37.1. Heart rate 92. Blood pressure 129/83. Respirations 18. 99% on room air. He was a short statured fatigued appearing [place] male but no acute distress. Pupils reactive. Speech normal. Normal facial symmetry. Neck with shotty adenopathy but otherwise supple. Lungs clear to auscultation and percussion. PMI normally placed with a regular rate and rhythm. Abdomen soft, nontender. Extremities without edema. Neurologically he is alert, oriented, no ataxia, no focal deficits. Greater than 30 minutes was spent correlating discharge. And I emphasized to him to make sure that he sees his primary care provider in follow-up - ALLERGIES Allergies/Adverse Reactions: Allergies Allergy/AdvReac Type Severity Reaction Status Date / Time No Known Drug Allergies Allergy Verified 05/09/22 08:21 - MEDICATIONS Home Medications: Ambulatory Orders Medication Instructions Recorded Confirmed Latanoprost/Pf [Latanoprost 0.005% 1 drops EACHEYE QPM 05/09/22 05/09/22 Eye Drop] Timolol 0.5% Ophth Drops [Timoptic 1 drops EACHEYE BID 05/09/22 05/09/22 0.5% Ophth Drops] - LABS Result Diagrams: 05/12/22 05:42 05/12/22 05:42"
[2022-05-12] MEDS: NIRMATRELVIR/RITONAVIR PREPACK PO SCH (10:13)
== END 2022-05-12 14:10 | disposition home or self-care (01) | DRG 640 ==
LOC: EDBD → ED 22:04 → ICU 05-09 00:54 → MS2 05-10 14:55
PROVIDERS: ADMIT Internal Medicine; ATTEND Specialist
DX: E87.1 Hypo-osmolality and hyponatremia (principal); G93.41 Metabolic encephalopathy; U07.1 COVID-19; J81.1 Chronic pulmonary edema; R56.9 Unspecified convulsions; E86.0 Dehydration; R93.0 Abnormal findings on diagnostic imaging of skull and head, not elsewhere classified; Z78.1 Physical restraint status; R09.02 Hypoxemia; R45.1 Restlessness and agitation; R41.0 Disorientation, unspecified
CPT/HCPCS: 36415; 51701; 70450; 71045; 71275; 80048; 80053; 81001; 82140; 83605; 83690; 83880; 83930; 83935; 84145; 84300; 84443; 84484; 85025; 85027; 87040; 87150; 87633; 93005; 96374; 96376; 99285; 99291; 99292; A9270; J0131; J1170; J2060; Q9967; 81003; 87086